=== PATIENT | male | born 1965 | race Two or more races ===

== ENCOUNTER 2017-12-15 03:36 | Observation (INO) ==
[2017-12-15] MEDS ORDERED: HYDROmorphone 2 MG/1 ML VIAL IV STA (05:12)
[2017-12-15] MEDS ORDERED: ONDANSETRON 4 MG/2 ML VIAL IV STA (05:12)
[2017-12-15] MEDS ORDERED: fentaNYL 100 MCG/2 ML VIAL ONE ×3 (05:18→10:36)
[2017-12-15] MEDS ORDERED: fentaNYL 100 MCG/2 ML VIAL IV STA ×2 (05:25→06:36)
[2017-12-15] MEDS ORDERED: SODIUM CHLORIDE 0.9% 1,000 ML IV STA (05:26)
[2017-12-15] MEDS ORDERED: ONDANSETRON 4 MG/2 ML VIAL ONE ×2 (05:26→10:36)
[2017-12-15 05:33] LABS: Basophils % 0.6 % (0.0-0.8); Eosinophils # 0.1 10*3/uL (0.0-0.87); Eosinophils % 0.8 % (0.00-10.9); Hematocrit 40.2 VOL% (42.0-52.0); Hemoglobin 13.8 GM/DL (14.0-18.0); Immature Granulocytes % 0.4 %; Immature Granulocytes Absolute 0.03 #; Lymphocytes # 1.6 10*3/uL (1.4-4.0); Lymphocytes % 21.6 % (21.2-54.2); Mean Corpuscular HGB Conc 34.3 GM/DL (32-36); Mean Corpuscular Hemoglobin 30 PG (27-34); Mean Platelet Volume 10.2 FL (9.6-12.0); Monocytes # 0.5 10*3/uL (0.11-0.8); Monocytes % 7.3 % (1.7-12.7); Neutrophils % 69.3 % (38.7-73.9); Platelet Count 347 T/CUMM (130-400); Red Blood Count 4.57 MC/CUMM (3.8-5.5); Red Cell Distribution Width 11.9 % (9.3-17.3); White Blood Count 7.2 T/CUMM (4-12)
[2017-12-15 05:48] LABS: Albumin 3.4 G/DL (3.4-5.0); Bilirubin,Total 0.4 MG/DL (0.2-1.0); Osmolality,Calculated 282.3 MOS/KG (273-304); Potassium 3.3 MMOL/L (3.5-5.1); Total Protein 6.9 G/DL (6.4-8.3)
[2017-12-15] MEDS ORDERED: cefOXitin 2,000 MG in SYRINGE 1 EACH IV ONE (06:49)
[2017-12-15] MEDS ORDERED: TISSUE ADHESIVE 1 EACH APPLICATOR TOP ONE (08:53)
[2017-12-15] MEDS ORDERED: MIDAZOLAM 2 MG/2 ML VIAL ONE (10:36)
[2017-12-15] MEDS ORDERED: PROPOFOL 200 MG/20 ML VIAL IV ONE (10:36)
[2017-12-15] MEDS ORDERED: ROCURONIUM 100 MG/10 ML VIAL IV ONE (10:37)
[2017-12-15] MEDS ORDERED: ACETAMINOPHEN 1,000 MG/100 ML VIAL IV ONE (10:37)
[2017-12-15] MEDS ORDERED: LACTATED RINGERS 2,000 ML IV ONE (10:37)
[2017-12-15] MEDS ORDERED: SUCCINYLCHOLINE 200 MG/10 ML VIAL ONE (10:37)
[2017-12-15] MEDS ORDERED: PROMETHAZINE 25 MG/1 ML VIAL IM PRN (12:04)
[2017-12-15] MEDS ORDERED: HYDROmorphone 2 MG/1 ML VIAL IV PRN (12:04)
[2017-12-15] MEDS ORDERED: ONDANSETRON 4 MG/2 ML VIAL IV PRN (12:04)
[2017-12-15] MEDS: LACTATED RINGERS 1,000 ML IV SCH ×2 (13:18→23:05)
[2017-12-15] MEDS: KETOROLAC 15 MG/1 ML VIAL IV SCH ×3 (13:23→23:07)
[2017-12-16] MEDS: LACTATED RINGERS 1,000 ML IV SCH (03:26)
[2017-12-16 05:30] LABS: Basophils % 0.4 % (0.0-0.8); Eosinophils # 0.1 10*3/uL (0.0-0.87); Eosinophils % 1.6 % (0.00-10.9); Hematocrit 35.8 VOL% (42.0-52.0); Hemoglobin 12.6 GM/DL (14.0-18.0); Immature Granulocytes % 0.4 %; Immature Granulocytes Absolute 0.03 #; Lymphocytes # 1.4 10*3/uL (1.4-4.0); Mean Corpuscular HGB Conc 35.2 GM/DL (32-36); Mean Corpuscular Hemoglobin 31 PG (27-34); Mean Corpuscular Volume 86.9 FL (87-102); Mean Platelet Volume 10.1 FL (9.6-12.0); Monocytes # 0.5 10*3/uL (0.11-0.8); Monocytes % 6.9 % (1.7-12.7); Neutrophils # 5.2 10*3/uL (1.4-7.4); Neutrophils % 71.7 % (38.7-73.9); Platelet Count 276 T/CUMM (130-400); Red Blood Count 4.12 MC/CUMM (3.8-5.5); White Blood Count 7.3 T/CUMM (4-12)
[2017-12-16 05:59] LABS: Calcium 7.2 MG/DL (8.5-10.1); Osmolality,Calculated 277.4 MOS/KG (273-304); Potassium 3.5 MMOL/L (3.5-5.1)
[2017-12-16] MEDS ORDERED: ENOXAPARIN 40 MG/0.4 ML SYRINGE SUBCUT SCH (06:00)
[2017-12-16] MEDS: KETOROLAC 15 MG/1 ML VIAL IV SCH ×2 (06:07→12:19)
[2017-12-16] MEDS ORDERED: ATORVASTATIN 10 MG TABLET PO SCH (09:00)
[2017-12-16] MEDS ORDERED: PANTOPRAZOLE 40 MG VIAL IV SCH (09:00)
[2017-12-16] MEDS ORDERED: amLODIPine 5 MG TABLET PO SCH (09:00)
[2017-12-16 11:20] VITALS: BP 148/93
== END 2017-12-16 14:20 | disposition home or self-care (01) ==
LOC: N.ED 03:36 → N.3E 08:10 → N.OR 08:10
PROVIDERS: ADMIT Surgery; ATTEND Surgery